=== PATIENT | female | born 1980 | race Caucasian/White ===

== ENCOUNTER 2020-08-02 11:02 | Outpatient (CLI) | payer OTHER, SELFPAY ==
--- NOTE | 2020-08-02 11:10 | MM_ITS ---
WS: [id number] SCREENING DIGITAL MAMMOGRAM WITH CAD HISTORY: SCREENING COMPARISON: None available. Bilateral CC and MLO views submitted. Computer aided detection analyzed. Breast composition: The breasts are heterogeneously dense, which may obscure small masses. 11 mm asym metry noted in the LEFT MLO projection in the superior breast. This is not identified on the CC proje ction due to its posterior position. Otherwise breast parenchyma is normal. MM/[place] [id number] IMPRESSION: BI-RADS: 0-Incomplete: Need additional imaging evaluation FOLLOW UP: Need Additional Imaging LEFT breast: Spot compression views ( MLO). Exaggerated lateral LEFT CC True ML . Ultrasound to follow if abnormality persists.
== END 2020-08-02 11:03 | disposition home or self-care (01) ==
LOC: RADSHAW 11:04
PROVIDERS: PCP Family Medicine; Visit Provider Family Medicine
DX: Z12.31 Encounter for screening mammogram for malignant neoplasm of breast (principal); N64.89 Other specified disorders of breast
CPT/HCPCS: 77067

== ENCOUNTER 2020-08-05 10:35 | Outpatient (CLI) | payer OTHER, SELFPAY ==
--- NOTE | 2020-08-05 10:38 | US_ITS ---
WS: [id number] ADDITIONAL VIEWS LEFT MAMMOGRAM LEFT BREAST ULTRASOUND HISTORY: ABNORMAL MAMMOGRAM LT BREAST COMPARISON: 08/02/2020 LEFT MAMMOGRAM: Spot compression views and true ML. Additional spot compression views towards the LEFT axillary tail. The asymmetry noted on the screenin g mammogram persists but becomes less obvious. This is only seen in the lateral projection. There is additional mild increased density 9:00 LEFT breast. LEFT BREAST ULTRASOUND 2-D and color Doppler imaging submitted. Ultrasound at 2:00 demonstrates an ovoid hypoechoic nodule measuring 5 x 3 x 8 mm with no increased v ascularity. Most likely a small cyst. At 2:00 there is an additional hypoechoic nodule measuring 9 x 4 x 6 mm. May be a small complex cysts or fibrocystic disease. No shadowing. No increased vascularity . At 9:00 near the area look is a minimally complex cyst measuring 9 x 8 x 1.0 cm. US/US breast LT limited* [id number] IMPRESSION: BI-RADS: 3-Probably Benign FOLLOW UP: 6 Month Follow-up Favor the changes in the LEFT axillary tail are benign and related to cystic di sease or fibrocystic disease. As this is the patient's first mammogram short-te rm follow-up is recommended. 6 month LEFT mammogram and possible ultrasound are recommended.
== END 2020-08-05 10:36 | disposition home or self-care (01) ==
PROVIDERS: PCP Family Medicine; Visit Provider Family Medicine
DX: R92.8 Other abnormal and inconclusive findings on diagnostic imaging of breast (principal); N63.21 Unspecified lump in the left breast, upper outer quadrant
CPT/HCPCS: 76642; 77065

== ENCOUNTER 2021-03-24 09:58 | Outpatient (CLI) | payer OTHER, SELFPAY ==
--- NOTE | 2021-03-24 10:24 | XR_ITS ---
WS: [id number] Left elbow, 2 views, 03/24/2021 Clinical Data: LEFT ELBOW PAIN Comparison: None. Findings: No fractures or dislocations are seen. The radial head is normal. The soft tissues are unremarkable. XR/XR elbow LT 2V [id number] Impression: Negative left elbow.
== END 2021-03-24 09:59 | disposition home or self-care (01) ==
PROVIDERS: PCP Family Medicine; Visit Provider Family Medicine
DX: M25.522 Pain in left elbow (principal)
CPT/HCPCS: 73070

== ENCOUNTER → 2024-05-30 11:14 | Outpatient (BNVA) | payer OTHER, SELFPAY | PROVIDERS: PCP Family Medicine; Visit Provider Family Medicine | DX: Z02.0 Encounter for examination for admission to educational institution (principal) | CPT/HCPCS: 86735; 86762; 86765; 86787; 87340 ==

== ENCOUNTER 2024-07-10 09:53 | Outpatient (CLI) | payer OTHER, SELFPAY ==
--- NOTE | 2024-07-10 10:00 | MM_ITS ---
WS: [id number] DIAGNOSTIC BILATERAL DIGITAL BREAST TOMOSYNTHESIS MAMMOGRAPHY WITH CAD HISTORY: follow up mammogram. last one was 4 years ago COMPARISON: 08/05/2020, 08/02/2020 TECHNIQUE: Bilateral craniocaudad, mediolateral oblique, and mediolateral views are submitted with to mosynthesis and SM. Spot compression LEFT MLO. Spot compression RIGHT CC and MLO. Computer aided dete ction utilized. Breast composition: The breasts are extremely dense, which lowers the sensitivity of mammography. The asymmetry described on the prior mammogram from 08/02/2020 towards the LEFT axillary tail is katelyn entified with no progression or change. There are a few benign calcifications in each breast. There i s a new area of increasing density and asymmetry in the mid lateral RIGHT breast seen best on the CC projection. There is increasing asymmetry also towards the axillary tail of the RIGHT breast. With ad ditional spot compression views this new asymmetry resolves. MM/MM diag BI tomosynthesis [id number] IMPRESSION: BI-RADS: 2 - Benign FOLLOW UP: 1 Year Follow-up
== END 2024-07-10 09:54 | disposition home or self-care (01) ==
LOC: RAD 09:53
PROVIDERS: PCP Family Medicine; Visit Provider Clinical Nurse Specialist Adult Health
DX: N64.89 Other specified disorders of breast (principal); R92.333 Mammographic heterogeneous density, bilateral breasts; R92.1 Mammographic calcification found on diagnostic imaging of breast
CPT/HCPCS: 77062; G0279